=== PATIENT | male | born 1975 | race Caucasian/White ===

== ENCOUNTER 2020-06-19 13:23 | Outpatient (REF) | payer OTHER, SELFPAY | END 2020-06-19 13:24 | disposition home or self-care (01) | LOC: HO.LAB 13:23 | PROVIDERS: PCP Physician Assistant Medical; Visit Provider Internal Medicine | DX: Z20.828 Contact with and (suspected) exposure to other viral communicable diseases (principal) | CPT/HCPCS: C9803; U0003 ==

== ENCOUNTER 2020-08-18 13:33 | Outpatient (REF) | payer OTHER, SELFPAY | END 2020-08-18 13:34 | disposition home or self-care (01) | LOC: HO.LAB 13:33 | PROVIDERS: Visit Provider Internal Medicine | DX: Z20.822 Contact with and (suspected) exposure to COVID-19 (principal) | CPT/HCPCS: 36415; C9803; U0003; U0005 ==

== ENCOUNTER 2021-06-24 12:46 | Outpatient (REF) | payer OTHER, SELFPAY ==
[2021-06-24 15:08] LABS: Binax Internal Control QC Valid; Binax Now Covid-19 Ag Negative (Negative)
== END 2021-06-24 12:47 | disposition home or self-care (01) ==
LOC: HO.LAB 12:46
PROVIDERS: Visit Provider Internal Medicine
DX: Z20.822 Contact with and (suspected) exposure to COVID-19 (principal)
CPT/HCPCS: 36415; C9803

== ENCOUNTER 2021-09-02 13:29 | Emergency (ER) | payer OTHER, SELFPAY ==
[2021-09-02 13:47] VITALS: BP 139/77; PULSE 91; RESP 16; TEMP 36.8; O2SAT 97; BMI 28.1
--- NOTE | 2021-09-02 14:00 | ED.EXTPRO ---
HPI - Extremity Problem General Chief complaint: Extremity Problem Stated complaint: hand swelling Time Seen by Provider: 09/02/21 14:00 Source: patient Mode of arrival: ambulatory Limitations: no limitations History of Present Illness HPI Narrative: 45 y/o male with history of DM presents to the ER for evaluation of acute onset of red, warm left middle finger that he woke up with this morning. He states last night he noticed some redness to the radial side of his middle finger on his left hand. Today he woke up with it swollen and painful. He denies any injury. He has been using this finger to do his fingersticks for his glucose monitoring at home. He denies history of gout. No other finger pain or wrist pain. No fever or chills. MD Complaint: extremity pain and extremity swelling Onset (ago): day(s) Pain Consistency: constant Location: left Severity scale (1-10): 4 Quality: aching Radiation: proximal Relieving factors: nothing Exacerbating factors: range of motion and palpation Associated symptoms: denies other symptoms Related Data Previous Rx's Medication Instructions Recorded cephalexin 500 mg capsule 500 mg PO Q6H 7 Days #28 cap 09/02/21 Allergies Allergy/AdvReac Type Severity Reaction Status Date / Time No Known Allergies Allergy Unverified 03/06/20 17:49 Review of Systems Review of Systems: Constitutional: No Fever, No Chills s Cardiovascular: No Chest Pain, No SOB Gastrointestinal: No Nausea, No Vomitinga Musculoskeletal: + joint pain, No Myalgias Skin: + Skin Lesions, No rash Neuro: No Weakness, No Numbness Heme/Lymph: No Bruising, No Lymphadenopathy a PMFSH Social History Social History Advance Directives: No Advance Directives Information Provided: No Physical Exam Vital Signs: Vital Signs: Last Vital Signs Temp 98.2 F 09/02/21 13:47 Pulse 91 09/02/21 13:47 Resp 16 09/02/21 13:47 BP 139/77 09/02/21 13:47 Pulse Ox 97 09/02/21 13:47 BMI result Body Mass Index 28.1 Appearance: Alert. Oriented X3. No acute distress. HEENT: normal inspection CVS: Normal heart rate and rhythm. Pulses normal. Respiratory: No respiratory distress. Skin: Skin warm and dry. Normal skin color. Normal skin turgor. No rashes. Extremities: left middle finger with mild-moderate swelling of the PIP and proximal finger, erythema and warmth of the radial aspect of the entire digit. NV intact distally. normal ROM with pain upon flexion and palpation. Neuro: Oriented X 3. No motor deficit. No sensory deficit. Course Course Course Narrative: 45 y/o male with history of DM presents to the ER with left middle finger pain, redness and swelling that started today. The medial aspect of the middle finger on the left hand appers to be infected. full ROM without exquisite tenderness to suggest joint involvement or gout. Will treat for cellulitis and have him f/u with his PCP. Instructed to change finger he is doing his fingersticks on. He will return to the ER if symptoms worsen despite abx and warm soaks. Stable for d/c home. Discharge Plan Discharge Clinical Impression: Cellulitis Patient Disposition: Home, Self-Care Instructions: Cellulitis (DC), Warm Compress or Soak (ED) Additional Instructions: Take the prescribed antibiotic as directed. Use warm compresses several times per day. If you develop new or worsening symptoms call 911 or come back to the ER for further evaluation. Prescriptions: New cephalexin 500 mg capsule 500 mg PO Q6H 7 Days Qty: 28 0RF Interventions: ED Discharge Assessment Last Done: 09/02/21 14:15 Discharge Date/Time: 09/02/21 14:15
== END 2021-09-02 14:15 | disposition home or self-care (01) ==
PROVIDERS: Emergency Provider Emergency Medicine; PCP Physician Assistant Medical
DX: L03.012 Cellulitis of left finger (principal)
CPT/HCPCS: 99283

== ENCOUNTER 2022-06-08 11:01 | Emergency (ER) | payer BC, OTHER, SELFPAY ==
--- NOTE | ~2022-06-08 | XR_ITS ---
EXAMINATION: XR CHEST CLINICAL INFORMATION: Chest pain COMPARISON: None TECHNIQUE: 2 views of the chest were obtained. FINDINGS: Lungs clear. No pleural effusions. Heart and pulmonary vessels are normal. XR/XR chest 2V IMPRESSION: No active disease.
[2022-06-08 11:04] VITALS: BP 146/81; PULSE 90; RESP 18; TEMP 36.2; O2SAT 98; BMI 29.7
--- NOTE | 2022-06-08 11:05 | ECG_ITS ---
Test Reason : cp Blood Pressure : / mmHG Vent. Rate : 085 BPM Atrial Rate : 085 BPM P-R Int : 146 ms QRS Dur : 080 ms QT Int : 346 ms P-R-T Axes : 035 038 014 degrees QTc Int : 411 ms Normal sinus rhythm Normal ECG No previous ECGs available Referred By: Generic ED Physician Electronically Signed By:Zhang Farooq
[2022-06-08 11:20] LABS: MANUAL DIFF FLAG NO
[2022-06-08 11:23] LABS: Basophils Percent Auto 0.7 % (0-2); Eosinophils Absolute Auto 0.1 X10*3/uL (0.0-0.4); Eosinophils Percent Auto 1.8 % (0-4); Hemoglobin 14.7 g/dl (14.0-18.0); Imm Gran Abs Auto 0.02 X10*3/uL (0.00-0.03); Imm Gran Pct Auto 0.3 % (0.0-0.4); Lymphocytes Absolute Auto 1.7 X10*3/uL (1.2-4.9); Lymphocytes Percent Auto 27.8 % (20-40); Mean Corpuscular HGB Conc 32.7 g/dl (31.0-36.0); Mean Corpuscular Hemoglobin 27.6 pg (27.0-33.0); Mean Corpuscular Volume 84.6 fL (80.0-98.0); Mean Platelet Volume 9.3 fL (9.4-12.4); Monocytes Absolute Auto 0.6 X10*3/uL (0.1-1.2); Monocytes Percent Auto 9.3 % (2-11); Neutrophils Absolute Auto 3.6 x10*3/uL (2.0-8.3); Neutrophils Percent Auto 60.1 % (45-73); Platelet Count 353 X10*3/uL (160-400); Red Blood Count 5.32 X10*6/uL (4.60-5.80); Red Cell Distribution Width 12.6 % (11.0-16.0); White Blood Count 6.1 X10*3/uL (4.8-10.8)
[2022-06-08 11:51] LABS: Alanine Aminotransferase 24 U/L (0-40); Albumin Level 4.8 g/dL (3.5-5.0); Alkaline Phosphatase 52 U/L (39-117); Anion Gap 13 (12-20); Aspartate Amino Transferase 19 U/L (5-37); Blood Urea Nitrogen 18 mg/dL (9-16); Calcium 9.5 mg/dL (8.4-10.2); Carbon Dioxide 27 mmol/L (22-29); Chloride 101 mmol/L (96-108); Creatinine Clr Calc Pharmacy 98.7; Estimated Glomerular Filt Rate > 60; Glucose Random 204 mg/dL (60-115); Potassium 5.2 mmol/L (3.3-5.1); Sodium 136 mmol/L (135-145); Total Protein 8.1 g/dL (6.5-8.0)
[2022-06-08 12:05] LABS: Troponin-I High Sensitivity < 2.7 ng/L (<3.5-35.0)
[2022-06-08 12:48] LABS: Bilirubin Total 0.4 mg/dL (0.0-1.0)
[2022-06-08 19:38] VITALS: BP 141/80; PULSE 93; RESP 17; TEMP 36.1; O2SAT 100
--- NOTE | 2022-06-08 19:38 | ED_ITS ---
HPI - Chest Pain General Chief Complaint: Chest Pain Stated Complaint: Chest pain Time Seen by Provider: 06/08/22 19:38 Source: patient Mode of arrival: ambulatory Limitations: no limitations History of Present Illness HPI narrative: Patient 46-year-old male with a past medical history of hypertension, hyperlipidemia, type 2 diabetes presents emergency department for chest pain. Onset of symptoms was 3 days ago has been intermittent since then. Denies specific exacerbating or alleviating factors. Denies associated fevers, chills, cough, shortness of breath, difficulty breathing nausea, vomiting, abdominal pain. Related Data Previous Rx's Medication Instructions Recorded cephalexin 500 mg capsule 500 mg PO Q6H 7 days #28 caps 09/02/21 Allergies Allergy/AdvReac Type Severity Reaction Status Date / Time No Known Allergies Allergy Unverified 03/06/20 17:49 Review of Systems Review of Systems: Constitutional : No Weight loss, No Fever, No Chills ENT/Mouth :? No sore throat, No Rhinorrhea Eyes: No Eye Pain, No Swelling Cardiovascular : pos Chest Pain, no SOB, no Dyspnea on Exertion, No Orthopnea, No Edema, No Palpitations Respiratory : No Cough, No Sputum Gastrointestinal : no Nausea, No Vomiting, No Diarrhea, No abdominal Pain, No Hematochezia, No Melena Genitourinary : No Dysuria, No Urinary Frequency Musculoskeletal : No joint pain, No Myalgias, No Joint Swelling Skin : No Skin Lesions, No rash Neuro : No Weakness, No Numbness, No Dizziness, No Headache Psych : No Anxiety/Panic, No Depression Heme/Lymph: No Bruising, No Lymphadenopathy Endocrine : No Polyuria, No Polydipsia Yes all other systems are reviewed and are negative [facility] Past Medical History Attestation statement: The following information was validated with the patient. Source: old records reviewed Physical Exam Vital Signs: Vital Signs: Last Vital Signs Temp 97.2 F 06/08/22 11:04 Pulse 90 06/08/22 11:04 Resp 18 06/08/22 11:04 BP 146/81 H 06/08/22 11:04 Pulse Ox 98 06/08/22 11:04 O2 Del Method 06/08/22 11:04 BMI result Body Mass Index 29.7 Appearance: Alert.?Oriented to person, place and time. No acute distress.?Normal affect. Eyes: Pupils equal, round and reactive to light.? ENT: Pharynx normal.?? Neck: Normal inspection.? Neck supple.?? CVS: Heart sounds normal. Normal heart rate and rhythm.? Pulses normal.?? Respiratory: No respiratory distress.? Lung sounds clear to auscultation bilaterally?? Abdomen: Soft and non-tender. Normoactive bowel sounds. ? Skin: Skin warm and dry.? Normal skin color.? Extremities: No lower extremity edema.? No calf ttp? Neuro: Moves all extremities spontaneously. Sensation intact bilaterally. No focal neuro deficits. Ambulates with normal steady gait. Course Course Course Narrative: Patient 46-year-old male with a past medical history of hypertension, hype rlipidemia, type 2 diabetes presents emergency department for chest pain. Reviewed labs obtained from initial triage, CBC is overall unremarkable, CMP overall unremarkable. Troponin < 2.7, EKG reveals a normal sinus rhythm with ventricular rate of 85, QTC 411, no ST elevations, no ST depressions, no T-wave inversions, has no prior EKG available for comparison, not consistent with ACS. Chest x-ray with no acute cardiopulmonary process, not consistent with CHF or pneumonia. He speaking clear full sentences, no respiratory distress. Is overall well-appearing. Vital signs are stable. At this time feel he is stable for discharge home, advised outpatient follow-up with primary care provider. Discussed worsening signs and symptoms to return back to the emergency department for. All questions were answered. He was discharged in stable condition. XR/XR chest 2V IMPRESSION: No active disease. Medical Decision Making Lab Data MDM Lab Attestation statement: I reviewed the patient's lab results. Result Diagrams: 06/08/22 11:13 06/08/22 11:13 Labs: Lab Results 06/08/22 06/08/22 06/08/22 Range/Units 11:13 11:13 11:13 WBC 6.1 (4.8-10.8) X10*3/uL RBC 5.32 (4.60-5.80) X10*6/uL Hgb 14.7 (14.0-18.0) g/dl Hct 45.0 (42.0-52.0) % MCV 84.6 (80.0-98.0) fL MCH 27.6 (27.0-33.0) pg MCHC 32.7 (31.0-36.0) g/dl RDW 12.6 (11.0-16.0) % Plt Count 353 (160-400) X10*3/uL MPV 9.3 L (9.4-12.4) fL Immature Gran % (Auto) 0.3 (0.0-0.4) % Neut % (Auto) 60.1 (45-73) % Lymph % (Auto) 27.8 (20-40) % Tompkins % (Auto) 9.3 (2-11) % Eos % (Auto) 1.8 (0-4) % Baso % (Auto) 0.7 (0-2) % Lymph # (Auto) 1.7 (1.2-4.9) X10*3/uL Tompkins # (Auto) 0.6 (0.1-1.2) X10*3/uL Eos # (Auto) 0.1 (0.0-0.4) X10*3/uL Baso # (Auto) 0.0 (0.0-0.2) X10*3/uL Abs Immat Gran (auto) 0.02 (0.00-0.03) X10*3/uL Absolute Neuts (auto) 3.6 (2.0-8.3) x10*3/uL Absolute Nucleated RBC 0.000 (0.0-0.012) X10*3/uL Nucleated RBC % (auto) 0.0 (0.0-0.2) /100WBC Sodium 136 (135-145) mmol/L Potassium 5.2 H (3.3-5.1) mmol/L Chloride 101 (96-108) mmol/L Carbon Dioxide 27 (22-29) mmol/L Anion Gap 13 (12-20) BUN 18 H (9-16) mg/dL Creatinine 0.97 (0.5-1.4) mg/dL Estim Creat Clear Calc 98.7 Estimated GFR > 60 Random Glucose 204 H (60-115) mg/dL Calcium 9.5 (8.4-10.2) mg/dL Total Bilirubin 0.4 (0.0-1.0) mg/dL AST 19 (5-37) U/L ALT 24 (0-40) U/L Alkaline Phosphatase 52 (39-117) U/L Troponin I High Sens < 2.7 (<3.5-35.0) ng/L Total Protein 8.1 H (6.5-8.0) g/dL Albumin 4.8 (3.5-5.0) g/dL Discharge Plan Discharge Clinical Impression: Atypical chest pain Patient Disposition: Home, Self-Care Instructions: Chest Pain (ED), Noncardiac Chest Pain (ED) Additional Instructions: You can take ibuprofen 200 mg, 3 tablets (600mg) every 6-8 hours as needed for pain, in addition to Tylenol 500 mg, 2 tablets (1,000mg) every 4-6 hours as needed for pain, but not to exceed 3 doses daily (3,000mg).? Return to emergency department any new or worsening symptoms or concerns Contact your primary care provider to arrange for a follow-up visit within the next 3 days. Prescriptions: No Action cephalexin 500 mg capsule 500 mg PO Q6H 7 Days Qty: 28 0RF Referrals: Ventura Alegre PA [Primary Care Provider] -
== END 2022-06-08 20:00 | disposition home or self-care (01) ==
LOC: HO.ED 19:56
PROVIDERS: Emergency Provider Emergency Medicine; PCP Physician Assistant Medical
DX: R07.89 Other chest pain (principal)
CPT/HCPCS: 36415; 71046; 80053; 84484; 85025; 93005; 99283

== ENCOUNTER 2025-01-13 10:03 | Emergency (ER) | payer OTHER, SELFPAY ==
[2025-01-13 10:15] VITALS: BP 137/79; PULSE 93; RESP 16; TEMP 36.4; O2SAT 99; BMI 28.5
--- OUTSIDE RECORDS SUMMARY | 2025-01-13 10:33 | XMS_ITS | Clinical Summary ---
Author Organization [address] Address [address] [place] [phone] Phone Care Team Providers Care Classification Case Manager Name Role Phone Ventura Alegre Primary Care Provider [phone] Allergies No known active allergies Medications ketoconazole (NIZORAL) 2 % cream Apply to affected area twice daily for 3 weeks 06/10/20 23 Active flash glucose sensor (FREESTYLE TANO 2 SENSOR MISC) 1 Units by Does not apply route every 14 days. 07/28/19 23 Active flash glucose scanning reader (FreeStyle Tano 2 [place]) misc 1 Units by Does not apply route as needed for Other (glucose monitoring). 07/28/19 23 Active blood sugar diagnostic (ONETOUCH ULTRA TEST MIS) Use glucometer once daily to check blood sugars 05/31/20 18 Active atorvastatin (LIPITOR) 40 mg tablet Take 1 tablet (40 mg total) by mouth 1 (one) time each day. 90 each 1 06/19/20 24 Active Ozempic 0.25 mg or 0.5 mg(2 mg/1.5 mL) injection pen Inject 0.5 mg under the skin every 7 (seven) days. 3 mL 3 06/19/20 24 Active sildenafiL (VIAGRA) 100 mg tablet Take 1 tablet (100 mg total) by mouth if needed for erectile dysfunction. 10 tablet 3 09/27/19 25 Active metFORMIN XR (GLUCOPHAGE-XR ) 500 mg 24 hr tablet TAKE 2 TABLETS BY MOUTH TWICE A DAY 90 tablet 1 04/28/20 25 Active lisinopriL (PRINIVIL,ZEST RIL) 20 mg tablet Take 1 tablet (20 mg total) by mouth 1 (one) time each day. 90 tablet 1 12/21/19 25 Active empagliflozin (Jardiance) 10 mg tablet Take 1 tablet (10 mg total) by mouth 1 (one) time each day. 90 each 1 01/03/20 25 Active lisinopriL (PRINIVIL,ZEST RIL) 20 mg tablet Take 1 tablet (20 mg total) by mouth 1 (one) time each day. 90 each 1 06/19/20 24 025 Discontinued Farxiga 10 mg tablet TAKE 1 TABLET BY MOUTH EVERY DAY 90 tablet 3 09/12/19 25 025 Discontinued Active Problems Problem Noted Date Diagnosed Date Type 2 diabetes with circula tory disorder causing erectile dysfunction [place] [place] [facility] [place]) 09/26/2024 Family history of prostate cancer in father 05/22 Erectile dysfunction 07/28/2022 COVID-19 08/18/2020 Essential hypertension 11/12/2016 Hyperlipidemia 02/06/2016 Microalbuminuria 02/06/2016 Type 2 diabetes mellitus wit h diabetic nephropathy ([facility] [place], [facility] V28) 02/06/2016 Onychomycosis 10/28/2015 Resolved Problems Problem Noted Date Diagnosed Date Resolved Date Type 2 diabetes mellitus wit hout complication ([facility] [place], [facility] V28) 10/29/2015 06/19/2024 Encounters Date Type Department Care Team Description 12/31/2024 Telephone Adult Medicine [address] [phone] Ventura Alegre PA Medication Problem 10/18/2024 Telephone Adult Medicine [address] [phone] Donte Arredondo MD from Last 3 Months Immunizations Name Administration Dates Next Due Influenza Quadravalent, MDCK , 0.5ml, preservative free (Flucelvax) 6mo and older 06/10/2023,03/26/2022,04/20/2021,03/04,04/19/2019,07/10/2018 Influenza trivalent, 0.5mL, preservative free (Fluarix; FluLaval; Fluzone) ages 6mo and older (Afluria) 3 years and older 03/16/2024 Pneumococcal conjugate 20 va lent (Prevnar 20, PCV 20) 2mo and older 06/19/2024 Pneumococcal polysaccharide 23 valent (Pneumovax 23) 2yo and older 11/19/2015 TD, Adsorbed, Preservative Free 07/15/2013 Tdap Tetanus diptheria acell ular pertussis (Boostrix; Adacel) 7yo and older 11/19/2015 Surgical History Surgery Date Site/Laterality Comments EYE SURGERY Left PROCEDURE: HISTORICAL EYE SURGERY; COMMENT: cataract related to injury OTHER SURGICAL HISTORY PROCEDURE: AL PLSTC RPR CL LIP/NSL DFRM PRIM PRTL/COMPL UNI Medical History Medical History Date Comments Onychomycosis 10/28/2015 DX:Onychomycosis Elevated blood pressure 10/28/2015 DX:Garland janeen blood pressure Type 2 diabetes mellitus wit hout complication ([facility], [facility] V28) 10/29/2015 DX:Type 2 diab etes mellitus without complication (HCC) Hyperlipidemia 02/06/2016 DX:Hyperlipidemi a Microalbuminuria 02/06/2016 DX:Microalbumin uria Type 2 diabetes mellitus wit h diabetic nephropathy ([facility] V24, [facility] V28) 02/06/2016 DX:Type 2 diabe rosa mellitus with diabetic nephropathy (HCC) Essential hypertension 11/12/2016 DX:Essent ial hypertension Covid-19 08/18/2020 DX:COVID-19 Type 2 diabetes mellitus wit hout complication ([facility] V24, [facility] V28) 10/29/2015 Family History Medical History Relation Name Comments Diabetes Brother Dementia Father Prostate cancer Father Diabetes Mother htn, lipids, fa tty liver Other: PVD Mother Diabetes Sister htn Blindness Neg Hx Cataracts Neg Hx Glaucoma Neg Hx Macular degeneration Neg Hx Strabismus Neg Hx Relation Name Status Comments Brother Alive Father Alive Mother Alive Sister Social History Tobacco Use Types Packs/Day Years Used Date Smoking Tobacco: Never Smokeless Tobacco: Never Tobacco Cessation:Counseling Given: Not Answered Alcohol Use Standard Drinks/Week Comments No 0 (1 standard drink = 0.6 oz pur e alcohol) Interpersonal Safety Answer Date Record ed Physical Abuse 08/14/2024 Verbal Abuse 08/14/2024 Sex and Gender Information Value Date Recorded Sex Assigned at Male 08/14/2024 8:27 AM EST Legal Sex Male 4:04 AM EST Gender Identity Male 08/14/2024 8:27 AM EST Sexual Orientation Straight 08/14/2024 8: 27 AM EST Obstetrics History Last Filed Vital Signs Vital Sign Reading Time Taken Comments Blood Pressure 147/85 09/26/2024 11:05 AM EDT Pulse 74 09/26/2024 11:05 AM EDT Temperature 36.4 C (97.5 F) 09/26/2024 11:05 AM EDT Respiratory Rate 16 09/26/2024 11:05 AM EDT Oxygen Saturation 99% 08/14/2024 10:34 AM EST Inhaled Oxygen Concentration - - Weight 84.1 kg (185 lb 6.4 oz) 09/26/2024 11:05 AM EDT Height 170.2 cm (5' 7 ) 09/26/2024 11:05 AM EDT Body Mass Index 29.04 09/26/2024 11:05 AM EDT Plan of Treatment Upcoming Encounters Date Type Department Care Team (Late st Contact Info) Description 02/22/2025 11:00 AM EDT Office Visit [facility] Hematology Oncology [address] [place] [phone] Mansi Madison, DO [address] [place] [address] 04/03/2025 12:45 PM EDT Office Visit Adult Medicine [facility] [address] [place] [phone] Ventura Alegre PA [address] [place] [address] Health Maintenance Due Date Last Done Comments Hepatitis B Vaccines (1 of 3 - 19+ 3-dose series) 1993 HIV Screening 05/29/2022 Social Influencers of Health Screening 05/29/2022 COVID-19 Vaccine ( season) 2024 06/06/2021, 09/24/2020 Zoster Vaccines (1 of 2) 2024 Influenza Vaccine (#1) 2025 , 06/10/2023, 03/26/2022, Additional history exists Diabetes: Annual Foot Exam 03/16/2025 03/16/2024 Diabetes: Annual Retina Eye Exam 03/16/2025 03/16/2024 Diabetes: Blood Sugar Control Test (HGBA1C) 03/20/2025 09/18/2024, 06/15/2024, 03/09/2024, Additional history exists Diabetes: Annual Urine Albumin-Creatinine Ratio (uACR) 09/18/2025 09/18/2024, 06/15/2024, 03/09/2024 Diabetes: Annual GFR (Glomerular Filtration Rate) 09/18/2025 09/18/2024, 06/15/2024, 03/16/2024, Additional history exists Hypertension/CHF/CAD Annual BMP Blood Test 09/18/2025 09/18/2024, 06/15/2024, 03/16/2024, Additional history exists DTaP,Tdap,and Td Vaccines (2 - Td or Tdap) 11/18/2025 11/19/2015, 07/15/2013 Cholesterol Screening (Lipid Panel) 09/18/2029 09/18/2024, 06/15/2024, 03/09/2024, Additional history exists Colorectal Cancer Screening: Colonoscopy 08/14/2034 08/14/2024 Pneumococcal Vaccine: 50+ Years Completed 06/19/2024, 11/19/2015 Hepatitis C Screening Completed 09/18/2024 Depression Screening Completed 09/20/2024, 07/05/19 24 HIB Vaccines Aged Out No longer eligi ble based on patient's age to complete this topic HPV Vaccines Aged Out No longer eligi ble based on patient's age to complete this topic Hepatitis A Vaccines Aged Out No long er eligible based on patient's age to complete this topic IPV Vaccines Aged Out No longer eligi ble based on patient's age to complete this topic MMR Vaccines Aged Out No longer eligi ble based on patient's age to complete this topic Meningococcal ACWY Vaccine Aged Out N o longer eligible based on patient's age to complete this topic Meningococcal B Vaccine Aged Out No l onger eligible based on patient's age to complete this topic RSV Immunization Patients Under 20 months Aged Out No longer eligible based on patient's age to complete this topic Varicella Vaccines Aged Out No longer eligible based on patient's age to complete this topic Medical Devices Implanted Type Area Building Maintenance Supervisor Device Identifier Shelf Expiration Date Model / Serial / Lot Lens Bilateral: Eye Procedures Procedure Name Priority Date/Time Associated Diagnosis Comments AL PROTEIN ELECTROPHORETIC FRACTIONATION & QUANTITATION SERUM Routine 10/15/2024 3:47 PM EDT Elevated total protein PROTEIN, TOTAL Routine 10/15/2024 3:47 PM EDT Elevated total protein PROTEIN ELECTROPHORESIS, SERUM Routine 10/15/2024 3:47 PM EDT Elevated total protein KAPPA-[employer]AMBDA QUANTITATIVE FREE LIGHT CHAINS Routine 10/15/2024 3:47 PM EDT Elevated total protein HEPATITIS C ANTIBODY Routine 09/18/2024 4:31 PM EDT Need for hepatitis C screening test MICROALBUMIN CREATININE URINE RATIO Routine 09/18/2024 4:31 PM EDT Type 2 diabetes mellitus with diabetic nephropathy, without long-term current use of insulin (CMS/HCC V24, CMS/HCC V28) COMPREHENSIVE METABOLIC PANEL Routine 09/18/2024 4:31 PM EDT Type 2 diabetes mellitus with diabetic nephropathy, without long-term current use of insulin (CMS/HCC V24, CMS/HCC V28) HEMOGLOBIN A1C Routine 09/18/2024 4:31 PM EDT Type 2 diabetes mellitus with diabetic nephropathy, without long-term current use of insulin (CMS/HCC V24, CMS/HCC V28) LIPID PANEL WITH REFLEX TO DIRECT LDL Routine 09/18/2024 4:31 PM EDT Type 2 diabetes mellitus with diabetic nephropathy, without long-term current use of insulin (CMS/HCC V24, CMS/HCC V28) COLONOSCOPY Routine 08/14/2024 10:13 AM EST Family history of colon cancer DIABETES EYE EXAM Routine 03/16/2024 DIABETES FOOT EXAM Routine 03/16/2024 DEPRESSION SCREENING Routine 07/05/2023 from Last 3 Months or Most Recently Relevant to Health Maintenance Results * PATHOLOGIST REVIEW PROTEIN ELECTROPHORESIS (10/15/2024 3:47 PM EDT) Pathologist Interpretation Yasmeen Allison MD 10/17/2024 3:06 PM EDT [facility] Blood Venous blood specimen / Unknown Venipuncture / Unknown 10/15/2024 3:47 PM EDT 10/15/2024 3:47 PM EDT Donte Arredondo MD LAB BLOOD ORDERABLES F inal Result [facility] [address] [place] [address], [place] [phone] * (ABNORMAL) [place]-lambda free light chains, quantitative (10/15/2024 3:47 PM EDT) [place] Free Light Chain 2.47(H) 0.33 - 1.94 mg/dL 10/18/2024 1:00 PM EDT [facility] Lambda Free Light Chain 1.62 0.57 - 2.63 mg/dL 10/18/2024 1:00 PM EDT [facility] [place]/Lambda FLC Ratio 1.52 0.26 - 1.65 10/18/2024 1:00 PM EDT [facility] Comment: Test performed at [facility], [address], [place] [address] Dora Baltazar MD, PhD - [employer] Drawing Operator Blood Venous blood specimen / Unknown Venipuncture / Unknown 10/15/2024 3:47 PM EDT 10/15/2024 3:47 PM EDT us Donte Arredondo MD LAB BLOOD ORDERABLES F inal Result [address] [place] [address] * (ABNORMAL) Protein electrophoresis, serum (10/15/2024 3:47 PM EDT) Total Protein 8.5(H) 6.0 - 8.0 g/dL LAB CHEMISTRY METHOD 10/17/2024 3:06 PM EDT [facility] Albumin, Serum 4.4(H) 2.9 - 4.1 g/dL LAB CHEMISTRY METHOD 10/17/2024 3:06 PM EDT [facility] Alpha 1 Globulin (g/dL) 0.3 0.1 - 0.5 g/dL LAB CHEMISTRY METHOD 10/17/2024 3:06 PM EDT [facility] Alpha 2 Globulin (g/dL) 0.8 0.7 - 1.5 g/dL LAB CHEMISTRY METHOD 10/17/2024 3:06 PM EDT [facility] Beta (g/dL) 1.4 0.7 - 1.5 g/dL LAB CHEMISTRY METHOD 10/17/2024 3:06 PM EDT [facility] Gamma Globulin (g/dL) 1.6 0.7 - 1.9 g/dL LAB CHEMISTRY METHOD 10/17/2024 3:06 PM EDT [facility] SPEP Interpretation No M-Maxim seen. Increased levels of albumin may be seen in acute dehydration. LAB CHEMISTRY METHOD 10/17/2024 3:06 PM T [facility] Blood Venous blood specimen / Unknown Venipuncture / Unknown 10/15/2024 3:47 PM EDT 10/15/2024 3:47 PM EDT us Donte Arredondo MD LAB BLOOD ORDERABLES F inal Result Performing Organization Address [facility]/ZIP Co de Phone Number [facility] [address] [place] [address], [place] [phone] * (ABNORMAL) Protein, total (10/15/2024 3:47 PM EDT) [facility] Total Protein 8.5(H) 6.0 - 8.0 g/dL LAB CHEMISTRY METHOD 10/15/2024 9:42 PM EDT [facility] Blood Venous blood specimen / Unknown Venipuncture / Unknown 10/15/2024 3:47 PM EDT 10/15/2024 3:47 PM EDT us Donte Arredondo MD LAB BLOOD ORDERABLES F inal Result Performing Organization Address [facility] Co de Phone Number [facility] [address] [place] [address], [place] [phone] * Hepatitis C antibody (09/18/2024 4:31 PM EDT) [facility] Hepatitis C Antibody Negative Negative LAB CHEMISTRY METHOD 09/18/2024 8:55 PM EDT [facility] Blood Venous blood specimen / Unknown Venipuncture / Unknown 09/18/2024 4:31 PM EDT 09/18/2024 4:31 PM EDT us Donte Arredondo MD LAB BLOOD ORDERABLES F inal Result Performing Organization Address [facility] Co de Phone Number [facility] [address] [place] [address], [place] [phone] * (ABNORMAL) Lipid panel with reflex to direct LDL (09/18/2024 4:31 PM EDT) [facility] Cholesterol 168 0 - 200 mg/dL LAB CHEMISTRY METHOD 09/18/2024 7:44 PM EDT [facility] Triglycerides 287(H) 0 - 150 mg/dL LAB CHEMISTRY METHOD 09/18/2024 7:44 PM EDT [facility] HDL 42 >=40 mg/dL LAB CHEMISTRY METHOD 09/18/2024 7:44 PM EDT [facility] LDL Calculated 69 0 - 100 mg/dL LAB CHEMISTRY METHOD 09/18/2024 7:44 PM EDT [facility] VLDL Cholesterol Dominic 57.4 mg/dL LAB CHEMISTRY METHOD 09/18/2024 7:44 PM EDT [facility] Non HDL Chol. (LDL+VLDL) 126 <145 mg/dL LAB CHEMISTRY METHOD 09/18/2024 7:44 PM EDT [facility] Chol/HDL Ratio 4.0 0.0 - 4.4 LAB CHEMISTRY METHOD 09/18/2024 7:44 PM EDT [facility] Blood Venous blood specimen / Unknown Venipuncture / Unknown 09/18/2024 4:31 PM EDT 09/18/2024 4:31 PM EDT us Donte Arredondo MD LAB BLOOD ORDERABLES F inal Result [facility] [address] [place] [address], * Microalbumin creatinine urine ratio (09/18/2024 4:31 PM EDT) Creatinine, Urine 59.0 mg/dL LAB CHEMISTRY METHOD 09/18/2024 8:06 PM EDT [facility] Microalb, Ur 13.5 0.0 - 29.0 mg/L LAB CHEMISTRY METHOD 09/18/2024 8:06 PM EDT [facility] Microalb/Creat Ratio 23 <30 mg/g creat LAB CHEMISTRY METHOD 09/18/2024 8:06 PM EDT [facility] Urine Urine specimen obtained by clean catch procedure / Unknown Non-blood Collection / Unknown 09/18/2024 4:31 PM EDT 09/18/2024 4:31 PM EDT us Donte Arredondo MD LAB URINE ORDERABLES F inal Result Performing Organization Address [facility] Co de Phone Number [facility] [address] [place] [address], [place] [phone] * (ABNORMAL) Hemoglobin A1c (09/18/2024 4:31 PM EDT) Hemoglobin A1C 7.6(H) <6.5 % LAB CHEMISTRY METHOD 09/19/2024 1:48 PM EDT [facility] Mean Bld Glu Estim. 171 mg/dL LAB CHEMISTRY METHOD 09/19/2024 1:48 PM EDT [facility] Blood Venous blood specimen / Unknown Venipuncture / Unknown 09/18/2024 4:31 PM EDT 09/18/2024 4:31 PM EDT us Donte Arredondo MD LAB BLOOD ORDERABLES F inal Result Performing Organization Address [facility]/ZIP Co de Phone Number [facility] [address] [place] [address], [place] [phone] * (ABNORMAL) Comprehensive metabolic panel (09/18/2024 4:31 PM EDT) Sodium 135 133 - 145 mmol/L LAB CHEMISTRY METHOD 09/18/2024 7:44 PM EDT [facility] Potassium 4.2 3.5 - 5.5 mmol/L LAB CHEMISTRY METHOD 09/18/2024 7:44 PM EDT [facility] Chloride 99 96 - 110 mmol/L LAB CHEMISTRY METHOD 09/18/2024 7:44 PM EDT [facility] CO2 27 21 - 32 mmol/L LAB CHEMISTRY METHOD 09/18/2024 7:44 PM [facility] Anion Gap 9 3 - 11 LAB CHEMISTRY METHOD 09/18/2024 7:44 PM [facility] Glucose 165(H) 70 - 100 mg/dL LAB CHEMISTRY METHOD 09/18/2024 7:44 PM [facility] BUN 24 5 - 25 mg/dL LAB CHEMISTRY METHOD 09/18/2024 7:44 PM [facility] Creatinine 0.96 0.70 - 1.30 mg/dL LAB CHEMISTRY METHOD 09/18/2024 7:44 PM [facility] eGFR 97 >=60 mL/min/1. 73m2 LAB CHEMISTRY METHOD 09/18/2024 7:44 PM [facility] Comment:Calculation based on the Chronic Kidney Disease Epidemiology Collaboration (CKD-EPI) equation refit without adjustment for race. BUN/Creatinine Ratio 25.0 LAB CHEMISTRY METHOD 09/18/2024 7:44 PM [facility] Calcium 9.7 8.5 - 10.5 mg/dL LAB CHEMISTRY METHOD 09/18/2024 7:44 PM [facility] AST (SGOT) 16 10 - 42 unit/L LAB CHEMISTRY METHOD 09/18/2024 7:44 PM [facility] ALT (SGPT) 28 10 - 60 unit/L LAB CHEMISTRY METHOD 09/18/2024 7:44 PM [facility] Alkaline Phosphatase 74 42 - 121 unit/L LAB CHEMISTRY METHOD 09/18/2024 7:44 PM [facility] Total Protein 8.2(H) 6.0 - 8.0 g/dL LAB CHEMISTRY METHOD 09/18/2024 7:44 PM [facility] Albumin 4.2 3.2 - 5.0 g/dL LAB CHEMISTRY METHOD 09/18/2024 7:44 PM [facility] Total Bilirubin 0.3 0.0 - 1.4 mg/dL LAB CHEMISTRY METHOD 09/18/2024 7:44 PM EDT [facility] Blood Venous blood specimen / Unknown Venipuncture / Unknown 09/18/2024 4:31 PM EDT 09/18/2024 4:31 PM EDT Donte Arredondo MD LAB BLOOD ORDERABLES F inal Result [facility] [address] [place] [address], [place] [phone] * COLONOSCOPY Anesthesia - MAC; [facility] ENDOSCOPY (08/14/2024 10:13 AM EST) Anatomical Region Laterality Modality Endoscopy 08/14/2024 9:50 AM EST Impressions 08/14/2024 10:14 AM EST - One 4 mm polyp in the transverse colon, removed with a cold snare. Resected and retrieved. - The examination was otherwise normal on direct and retroflexion views. Recommendation: - Patient has a contact number available for emergencies. The signs and symptoms of potential delayed complications were discussed with the patient. Return to normal activities tomorrow. Written discharge instructions were provided to the patient. - Resume previous diet. - Continue present medications. - Await pathology results. - Repeat colonoscopy in 7-10 years for surveillance. Narrative 08/14/2024 10:[address] [facility] Patient Name: Clifton Valencia Procedure Date: 08/14/2024 9:50 AM Date of : 1975 Age: 48 Room: ROOM 15 Gender: Male Note Status: Finalized Attending MD: Dominik Rees MD, Procedure Date No Time: 08/14/2024 Procedure: Colonoscopy Indications: Screening for colorectal malignant neoplasm Providers: Dominik Rees MD Referring MD: Dominik Rees MD Medicines: Monitored Anesthesia Care Complications: No immediate complications. Estimated Blood Loss: Estimated blood loss: none. Procedure: After I obtained informed consent, the scope was passed under direct vision. Throughout the procedure, the patient's blood pressure, pulse, and oxygen saturations were monitored continuously. The Olympus Pediatric Colonoscope was introduced through the anus and advanced to the cecum, identified by appendiceal orifice and ileocecal valve. The colonoscopy was performed without difficulty. The patient tolerated the procedure well. The quality of the bowel preparation was adequate. Findings: A 4 mm polyp was found in the transverse colon. The polyp was sessile. The polyp was removed with a cold snare. Resection and retrieval were complete. The exam was otherwise without abnormality on direct and retroflexion views. Procedure Code(s): --- Professional --- 13799, Colonoscopy, flexible; with removal of tumor(s), polyp(s), or other lesion(s) by snare technique Diagnosis Code(s): --- Professional --- Z12.11, Encounter for screening for malignant neoplasm of colon D12.3, Benign neoplasm of transverse colon (hepatic flexure or splenic flexure) CPT copyright 2020 [employer]. All rights reserved. The codes documented in this report are preliminary and upon cable technician review may be revised to meet current compliance requirements. MD Dominik Sterling MD 08/14/2024 10:14:45 AM This report has been signed electronically.Dominik Rees MD Number of Addenda: 0 Note Initiated On: 08/14/2024 9:50 AM Scope In: Scope Out: Endoscopy Department at [facility] - [address] [place] [id number] Procedure Note Dominik Rees MD - 08/14/2024 [facility] Patient Name: Clifton Valencia Procedure Date: 08/14/2024 9:50 AM Date of : 1975 Age: 48 Room: ROOM 15 Gender: Male Note Status: Finalized Attending MD: Dominik Rees MD, Procedure Date No Time: 08/14/2024 Procedure: Colonoscopy Indications: Screening for colorectal malignant neoplasm Providers: Dominik Rees MD Referring MD: Dominik Rees MD Medicines: Monitored Anesthesia Care Complications: No immediate complications. Estimated Blood Loss: Estimated blood loss: none. Procedure: After I obtained informed consent, the scope was passed under direct vision. Throughout theprocedure, the patient's blood pressure, pulse, and oxygen saturations were monitored continuously. TheOlympus Pediatric Colonoscope was introduced through theanus and advanced to the cecum, identified byappendiceal orifice and ileocecal valve. The colonoscopy was performed without difficulty. The patient tolerated the procedure well. The quality of the bowel preparation was adequate. Findings: A 4 mm polyp was found in the transverse colon. The polyp was sessile. The polyp was removed with acold snare. Resection and retrieval were complete. The exam was otherwise without abnormality ondirect and retroflexion views. Procedure Code(s): --- Professional --- 30116, Colonoscopy, flexible; with removal of tumor(s), polyp(s), or other lesion(s) by snare technique Diagnosis Code(s): --- Professional --- Z12.11, Encounter for screening for malignantneoplasm of colon D12.3, Benign neoplasm of transverse colon (hepatic flexure or splenic flexure) CPT copyright 2020 [employer]. All rights reserved. The codes documented in this report are preliminary and upon cable technician reviewmay be revised to meet current compliance requirements. MD Dominik Sterling MD 08/14/2024 10:14:45 AM This report has been signed electronically.Dominik Rees MD Number of Addenda: 0 Note Initiated On: 08/14/2024 9:50 AM Scope In: Scope Out: Endoscopy Department at [facility] - [address] [place] [id number] IMPRESSION: - One 4 mm polyp in the transverse colon, removed with a cold snare. Resected and retrieved. - The examination was otherwise normal on directand retroflexion views. Recommendation: - Patient has a contact number available for emergencies. The signs and symptoms of potential delayed complications were discussed with thepatient. Return to normal activities tomorrow. Written discharge instructions were provided to thepatient. - Resume previous diet. - Continue present medications. - Await pathology results. - Repeat colonoscopy in 7-10 years forsurveillance. us Domiink Rees MD GI~PROCEDURE ORDERABLES Final R esult * Diabetes Foot Exam (03/16/2024) Pathologist [facility] Diabetes: Annual Foot Exam abstracted Historical Provider HEALTH MAINTENANCE Final Result * Diabetes Eye Exam (03/16/2024) Pathologist [facility] Diabetes: Annual Retina Eye Exam abstracted Historical Provider HEALTH MAINTENANCE Final Result * Depression Screening (07/05/2023) Pathologist [facility] Depression Screening abstracted Historical Provider HEALTH MAINTENANCE Final Result from Last 3 Months or Most Recently Relevant to Health Maintenance Insurance [facility] [address] [employer] Care Teams Classification Case Manager Relationship Specialty Start Date End Date Ventura Alegre PA [address] [place] [address] PCP - General Internal Medicine 06/19/24
--- OUTSIDE RECORDS SUMMARY | 2025-01-13 10:33 | XMS_ITS | Patient Health Record ---
Author Organization [facility] enter Address [address] [place] [id number] Support Name Relationship Address Phone Clifton Forrest Guarantor Unknown Reason For Referral No Information Plan Of Treatment No Information Insurance Providers Payer Name Payer Address Payer Phone Subscriber Number Group Number Insured Name Patient Relationship to Insured Coverage Start Date Coverage End Date [facility] Testing and Treatment Fund Attention CAR[employer] Act Provider Relief Fund [address] [address] [place] [address] Clifton Forrest Self - patient is the insured
[2025-01-13] MEDS: Lidocaine HCl 1 % MPF 2 ML VIAL INFILTRATI (11:13)
[2025-01-13] MEDS: Lidocaine 4 % Cream KIT 1 APPL TOPICAL (11:13)
--- NOTE | 2025-01-13 11:14 | ED.SKABFB ---
HPI - Skin/Abscess/Foreign Bdy General Chief complaint: Skin/Abscess/Foreign Body Stated complaint: pt states cyst on left butt cheek Time Seen by Provider: 01/13/25 10:19 Source: patient Mode of arrival: ambulatory Limitations: no limitations History of Present Illness ED Provider: Leeann Richmond APRN HPI narrative: 49-year-old male with a history of diabetes presents the ER with complaints of abscess the left buttocks for 8 days. Patient denies any fevers or chills. Patient denies any history of same Related Data Previous Rx's ?Medication ?Instructions ?Recorded cephalexin 500 mg capsule 500 mg PO Q6H 7 days #28 caps 09/02/21 amoxicillin 875 mg-potassium 1 tab PO BID #14 tabs 01/13/25 clavulanate 125 mg tablet Allergies Allergy/AdvReac Type Severity Reaction Status Date / Time No Known Allergies Allergy Verified 01/13/25 10:16 Review of Systems Review of Systems: Yes all other systems are reviewed and are negative Constitutional: Constitutional: Reports no additional constitutional complaints, Denies body ache(s), Denies chills, Denies fever(s), Denies headache(s) and Denies weakness Eyes: Eyes: Reports no additional eye complaints and Denies change in vision ENT: Reports system reviewed and no additional complaints, except as documented, Denies dizziness, Denies headache(s), Denies nasal congestion, Denies nasal discharge and Denies neck pain Cardiovascular: Cardiovascular: Reports no additional cardiovascular complaints, Denies chest pain, Denies leg edema and Denies dyspnea Respiratory: Respiratory: Reports no additional respiratory complaints, Denies cough and Denies dyspnea Gastrointestinal: Gastrointestinal: Reports no additional gastrointestinal complaints, Denies abdominal pain, Denies diarrhea, Denies nausea and Denies vomiting Genitourinary: Genitourinary: Denies urinary incontinence Musculoskeletal: Musculoskeletal: Reports no additional musculoskeletal complaints, Denies back pain, Denies arthralgias, Denies joint swelling, Denies neck pain, Denies numbness and Denies tingling Integumentary/Breasts: Skin/Breast: Reports system reviewed and no additional complaints, except as docu, Reports swelling, Reports erythema and Denies rash Neurologic: Reports system reviewed and no additional complaints, except as documented, Denies Abnormal speech present, Denies dizziness, Denies headache(s), Denies numbness, Denies tingling and Denies weakness PMFSH Past Medical History Attestation statement: The following information was validated with the patient. Source: old records reviewed and nursing notes reviewed Social History Social History Smoked in Last 30 Days: No Use of substances other than those prescribed or required for medical reasons: No Advance Directives: No Advance Directives Information Provided: Yes Do you have a plan to hurt others: No Plan Physical Exam Vital Signs: Vital Signs: Last Vital Signs Temp 97.6 F 01/13/25 11:53 Pulse 93 01/13/25 11:53 Resp 16 01/13/25 11:53 BP 137/79 01/13/25 11:53 Pulse Ox 99 01/13/25 11:53 O2 Del Method Room Air 01/13/25 11:53 BMI result Body Mass Index 28.5 Const: General: cooperative, healthy appearing, comfortable and no acute distress Orientation/consciousness: patient oriented x3 Limitations: no limitations HEENT: Head: Yes normal to inspection Ears: hearing grossly normal bilaterally General nose exam: Normal external nose present Face and sinus: Yes normal facial exam Mouth: Normal oral and palatal mucosa present Throat: Yes posterior oropharynx normal Eyes: General: appearance normal, both eyes and all related structures Pupils: Equal, round and reactive pupils present Neck: Neck: Yes normal visual inspection Chest: Chest palpation & inspection: normal inspection of the chest Resp: Effort & Inspection: normal respiratory effort Auscultation: clear to auscultation bilaterally Cardio: Rate: regular rate Rhythm: regular rhythm Peripheral pulses: Peripheral pulses 2+ throughout GI: Inspection: Yes normal to inspection Palpation (GI): Soft to palpation and nontender Auscultation: normal bowel sounds Back/Spine/Pelvis: Thoracic/Lumbar Spine: thoracic and lumbar spine normal to inspection Back/spine/pelvis image:  1. Medium-sized abscess with central fluctuance and tenderness. There is no extension into the perineum or into the perirectal area Skin: General skin exam: no rashes or lesions noted Neuro: General: patient oriented x3, no focal motor deficits and normal sensation to monofilament Cranial nerves: Yes Equal, round and reactive pupils present Cognition (Neuro): normal cognition Speech: No Abnormal speech present Gait exam (Neuro): Normal gait present Motor exam (neuro): 5/5 motor strength present throughout Extrem: General: Yes normal to inspection Course Course Course Narrative: See procedure note for incision and drainage. When I went to the incision and drainage there was extension to the perianal area but not the perirectal area. I was able to express quite a bit of purulent drainage. Packing was placed. A dressing was applied. The patient will be placed on oral antibiotics with recommendations to return in 48 hours for packing removal wound Reviewed worrisome signs and symptoms of when to return to the emergency room. Comfortable plan for discharge home Medications Administered Discontinued Medications Generic Name Dose Route Start Last Admin Trade Name Rajinder PRN Reason Stop Dose Admin Lidocaine HCl 1 appl 01/13/25 10:43 01/13/25 11:13 Lidocaine 4 % Cream Kit TOPICAL 01/13/25 10:44 1 appl ONCE ONE Administration Protocol Lidocaine HCl 2 ml 01/13/25 10:44 01/13/25 11:13 Lidocaine Hcl 1 % Mpf 2 Ml Vial INFILTRATI 01/13/25 10:45 2 ml ONCE ONE Administration Medical Decision Making Medical Decision Making [facility] Narrative: 49-year-old male with a history of diabetes presents the ER with complaints of abscess the left buttocks for 8 days. Patient denies any fevers or chills. Patient denies any history of same On exam patient has left buttocks abscess Will need incision and drainage and patient will be sent home with oral antibiotic Differential Diagnosis Differential Diagnoses: The differential diagnosis associated with the presentation includes Abscess Low suspicion for Rosanna's gangrene, cellulitis, perirectal abscess Admission/Observation Consideration of admission/observation: Escalation of care including admission/observation considered low suspicion for Rosanna's gangrene, cellulitis, perirectal abscess requiring advanced imaging, IV antibiotics and or admission Tests considered The following testing was considered but not selected: low suspicion for Rosanna's gangrene, cellulitis, perirectal abscess requiring advanced imaging, Prescription Management I considered prescription management with: Pain Medication and Antibiotic Procedures Abscess I/D Site: other (buttocks) Side (if applicable): left Amount of anesthesia used (mL): 3 Technique: incised with blade Sent for culture/gram staining?: No Irrigation: No Packing used?: none Discharge Plan Discharge Clinical Impression: Abscess of skin or subcutaneous tissue Patient Disposition: Home, Self-Care Instructions: Abscess (ED), Abscess Incision and Drainage (DC) Additional Instructions: Return in 48 hours for packing removal If the packing falls out before then you do not need to remove If you develop fever chills or your unwell feeling you need to return to the emergency department Prescriptions: New amoxicillin-pot clavulanate 875-125 mg tablet 1 tab PO BID Qty: 14 0RF No Action cephalexin 500 mg capsule 500 mg PO Q6H 7 Days Qty: 28 0RF Referrals: Ventura Alegre PA [Primary Care Provider, Internal Medicine] - 1 week Referral Note: F/U as needed Stand Alone Forms: Work/School Release Interventions: ED Discharge Assessment Last Done: 01/13/25 11:53 Discharge Date/Time: 01/13/25 11:54 Print Language: Turkish
[2025-01-13 11:53] VITALS: BP 137/79; PULSE 93; RESP 16; TEMP 36.4; O2SAT 99
== END 2025-01-13 11:54 | disposition home or self-care (01) ==
PROVIDERS: Emergency Provider Emergency Medicine; PCP Physician Assistant Medical
DX: L02.31 Cutaneous abscess of buttock (principal)
CPT/HCPCS: 10060; 99284; J2003